=== PATIENT | male | born 1970 | race African-American/Black ===

== ENCOUNTER 2024-08-26 20:16 | Emergency (ER) | payer OTHER, SELFPAY ==
[2024-08-26 20:17] VITALS: BP 158/106; PULSE 108; RESP 24; TEMP 37.1; O2SAT 99
[2024-08-26 20:28] VITALS: BMI 45.1
--- NOTE | 2024-08-26 20:51 | CT_ITS ---
PROCEDURE: ABDOMEN/PELVIS W IV CONT ONLY 08/26/2024 REASON FOR EXAM: ABDOMINAL PAIN TECHNIQUE: Abdomen and pelvis CT with intravenous contrast. Coronal and Sagittal reconstruction series were provided. CONTRAST: ISOVUE-300 VOLUME: 100 mL. One or more dose reduction techniques were used (e.g., Automated exposure control, adjustment of the mA and/or kV according to patient size, use of iterative reconstruction technique. RADIATION DOSE SUMMARY: DLP: 1485 0.82 mGycm COMPARISON: NONE. FINDINGS: Lung bases: Clear. Liver: Normal size. No mass. Gallbladder: Surgically absent. Spleen: Normal size. Pancreas: Normal size without evidence of mass surrounding inflammation or ductal dilation. Adrenals: Normal Kidneys: Normal renal sizes. No hydronephrosis. Bladder: Normal Reproductive Organs: Bowel: Right hemiabdomen bowel suture. Normal caliber large and small bowel. Lymph nodes: Unremarkable. Vasculature: Mild diffuse atherosclerotic calcifications are noted. LYMPH NODES Peritoneum / Retroperitoneum: Bones: Degenerative changes of the spine. CT/Abdomen/Pelvis W IV Cont ONLY IMPRESSION: No acute abnormalities. OVERALL FINAL ASSESSMENT: . LI-RADS is not meant to be used in patients <18 years or patients with cirrhosi s due to congenital hepatic fibrosis or due to vascular disorders, because these patients have a lower chance of developing HC C. Reading Location: [place] [id number]
[2024-08-26 20:53] LABS: Bedside Glucose 332 mg/dL (74-106)
--- NOTE | 2024-08-26 20:53 | ED.VIS.GI ---
HPI <Dr. Adiel Shah DO - Last Filed: 08/27/24 00:53> HPI - GI History of Present Illness Chief Complaint: Abd Pain Informant: patient Abdominal Pain/Flank Pain Onset: Hours (2) Context: Sudden Onset Timing: Continuous Quality: Aching and Sharp Location: Epigastric, RUQ and LUQ Current Severity: Severe Maximum Severity: Severe Worsened by: Nothing Relieved by: Nothing Nausea/Vomiting/Emesis GI Symptom: Positive for Nausea and Vomiting Quality: Positive for Nonbilious; Negative for Blood streaks, Coffee ground or Hematemesis Diarrhea/Melena/Hematochezia GI Symptom: Negative for Diarrhea, Melena or Hematochezia Associated Symptoms Associated Symptoms: Positive for Frequency; Negative for Dysuria or Hematuria Narrative Narrative: Patient presents with abdominal pain that began approximately 2 hours prior to arrival. Patient states his pain is mainly over his upper abdomen. Patient noted his blood sugars were elevated today. Patient describes the pain as sharp, aching, and burning. Patient states nothing makes it worse and nothing makes it better. Patient admits to some subjective fevers and chills. Patient also admits to some diaphoresis. Patient states he had a recent upper respiratory congestion and rhinorrhea. Patient admits to a mild cough but denies any sputum production. Patient denies any hematemesis or coffee-ground emesis. Patient denies any diarrhea, melena, or hematochezia. Patient admits to some urinary frequency and polyuria but denies any dysuria or hematuria. [facility] <Dr. Adiel Shah DO - Last Filed: 08/27/24 00:53> [facility] Medical History (Updated 08/27/24 @ 00:[address] Adiel Shah DO) Hypertension Diabetes mellitus Home Medications ?Medication ?Instructions ?Recorded ?Last Taken ?Type glipizide 10 mg tablet 15 mg (1.5 x 10 mg) PO DAILY #30 08/27/24 Unknown Rx tabs hydrochlorothiazide 12.5 mg tablet 12.5 mg PO DAILY #30 tabs 08/27/24 Unknown Rx hydrocodone-acetaminophen 5-325mg 1 tab PO Q6H PRN PRN Pain 3 days 08/27/24 Unknown Rx 5mg-325mg #10 TABLETS lisinopril 40 mg tablet 40 mg PO DAILY #30 tabs 08/27/24 Unknown Rx metformin 1,000 mg 24 hr 1,000 mg PO BID #60 tabs 08/27/24 Unknown Rx tablet,extended release (gastric reten.) (Glumetza) ondansetron 4 mg disintegrating 4 mg PO Q8H PRN PRN Nausea #10 tabs 08/27/24 Unknown Rx tablet Allergy/AdvReac Type Severity Reaction Status Date / Time No Known Allergies Allergy Verified 08/26/24 20:19 Family History no significant family his Surgical History (Updated 08/26/24 @ 23:[address] Adiel Shah DO) Hx of cholecystectomy Hx of appendectomy Social History Smoking Status: Never smoker ROS <Dr. Adiel Shah DO - Last Filed: 08/27/24 00:53> ROS ED Constitutional Constitutional ED: Reports chills, fever(s) and sweats Eyes Eyes: Denies blurry vision or change in vision ENT ENT ED: Reports rhinorrhea; Denies sore throat Cardiovascular Cardiovascular: Denies chest pain or palpitations Respiratory/Chest Respiratory/Chest: Reports cough; Denies dyspnea Gastrointestinal Gastrointestinal: Reports abdominal pain, nausea and vomiting; Denies diarrhea or melena Genitourinary Genitourinary ED: Reports urinary frequency; Denies dysuria or hematuria Musculoskeletal Musculoskeletal: Denies back pain or neck pain Integumentary Denies abscess or rash Neurologic Neurologic: Reports headache(s) and weakness Endocrine Endocrinology: Reports polyuria Allergic/Immunologic Allergic/Immunologic ED: Denies mouth swelling or urticaria EXAM <Dr. Adiel Shah DO - Last Filed: 08/27/24 00:53> Physical Exam Const Vital Signs: 08/26/24 20:17 08/26/24 20:28 08/26/24 21:17 Temperature 98.8 F Temperature Source Oral Pulse Rate 108 H 89 Respiratory Rate 24 H 18 Respiratory Effort Normal Respiratory Pattern Tachypnea Blood Pressure 158/106 H 161/98 H Blood Pressure Mean 123 119 Pulse Ox 99 95 Oxygen Delivery Method Room Air Room Air 08/26/24 22:00 08/26/24 23:00 08/27/24 00:00 Temperature Temperature Source Pulse Rate 85 87 101 H Respiratory Rate 25 H 18 18 Respiratory Effort Respiratory Pattern Blood Pressure 187/117 H 198/106 H 175/108 H Blood Pressure Mean 140 136 130 Pulse Ox 97 95 97 Oxygen Delivery Method Room Air Room Air Room Air 08/27/24 01:00 08/27/24 01:09 Temperature 97.8 F Temperature Source Pulse Rate 96 99 Respiratory Rate 18 18 Respiratory Effort Respiratory Pattern Blood Pressure 184/107 H 184/107 H Blood Pressure Mean 132 132 Pulse Ox 97 97 Oxygen Delivery Method Room Air Positive well nourished and well developed Constitutional Narrative: BMI is 45.1 General Appearance ED: well developed and NAD HEENT Reports moist mucous membranes Neck supple and no JVD Resp normal respiratory effort and clear to auscultation bilaterally Cardio regular rhythm Rate: tachycardic GI non-distended Palpation: soft and tender epigastric, LLQ, RLQ, LUQ, RUQ, periumbilical and suprapubic; Negative for guarding or rebound tenderness present Neuro CN's II-XII intact bilaterally, moves all extremities and no sensory deficits noted Sensorium / Orientation: alert Motor Exam: strength 5/5 throughout Psych mental status grossly normal <Dr. Karel Navarrete MD - Last Filed: 08/27/24 01:57> Physical Exam Const Vital Signs: 08/26/24 20:17 08/26/24 20:28 08/26/24 21:17 Temperature 98.8 F Temperature Source Oral Pulse Rate 108 H 89 Respiratory Rate 24 H 18 Respiratory Effort Normal Respiratory Pattern Tachypnea Blood Pressure 158/106 H 161/98 H Blood Pressure Mean 123 119 Pulse Ox 99 95 Oxygen Delivery Method Room Air Room Air 08/26/24 22:00 08/26/24 23:00 08/27/24 00:00 Temperature Temperature Source Pulse Rate 85 87 101 H Respiratory Rate 25 H 18 18 Respiratory Effort Respiratory Pattern Blood Pressure 187/117 H 198/106 H 175/108 H Blood Pressure Mean 140 136 130 Pulse Ox 97 95 97 Oxygen Delivery Method Room Air Room Air Room Air 08/27/24 01:00 08/27/24 01:09 Temperature 97.8 F Temperature Source Pulse Rate 96 99 Respiratory Rate 18 18 Respiratory Effort Respiratory Pattern Blood Pressure 184/107 H 184/107 H Blood Pressure Mean 132 132 Pulse Ox 97 97 Oxygen Delivery Method Room Air MDM <Dr. Adiel Shah DO - Last Filed: 08/27/24 00:53> [facility] MDM Narrative Medical decision making narrative: Differential diagnosis includes diabetic ketoacidosis, hyperosmolar hyperglycemic nonketotic state, uncontrolled diabetes, dehydration, electrolyte abnormality, pancreatitis, viral illness, bowel obstruction, perforation, aortic aneurysm, and aortic dissection. CT scan of the abdomen and pelvis will be obtained to assess for bowel obstruction, perforation, pancreatitis, aortic aneurysm, and aortic dissection. CBC will be obtained to assess for leukocytosis and anemia. Comprehensive metabolic profile will be obtained to assess for hepatic function, renal function, and electrolyte abnormality. Lipase will be obtained to assess for pancreatitis. Beta hydroxybutyrate will be obtained to assess for diabetic ketoacidosis. Serum lactate will be obtained to assess for sepsis. Urinalysis will be obtained to assess for urinary tract infection and hematuria. COVID-19, influenza, and RSV PCR will be obtained to assess for viral illness. Venous blood gas will be obtained to assess for diabetic ketoacidosis. History & Record Review Additional record(s) reviewed:: No prior records Lab Data Attestation: I reviewed the patient's lab results. Lab results narrative: CBC was reviewed and was within normal limits. Comprehensive metabolic profile was reviewed. CO2 was slightly low at 17.1 and anion gap is slightly elevated at 18. Glucose was mildly elevated at 339. Serum lactate was reviewed and was elevated at 4.7. Lipase was reviewed and was normal at 37. Beta hydroxybutyrate was reviewed and was minimally elevated at 0.4. Urinalysis was reviewed. There is no evidence of urinary tract infection or hematuria. Urine ketones were 150. Urine glucose was 1000. COVID-19 PCR was reviewed and was negative. Influenza PCR was reviewed and was negative for influenza A and influenza B. RSV PCR was reviewed and was negative. Labs: Laboratory Results - last 24 hr 08/26/24 08/26/24 08/26/24 20:34 20:35 21:09 WBC 6.3 RBC 5.13 Hgb 14.9 Hct 40.4 MCV 78.8 L MCH 29.0 MCHC 36.9 H RDW Std Deviation 35.7 RDW Coeff of Michael 12.6 Plt Count 294 MPV 10.6 Immature Gran % (Auto) 0.200 Neut % (Auto) 54.5 Lymph % (Auto) 35.2 [place] % (Auto) 7.8 Eos % (Auto) 1.3 Baso % (Auto) 1.0 Absolute Neuts (auto) 3.4 Absolute Lymphs (auto) 2.21 Nucleated RBC % 0 Sodium 133 Potassium 3.4 Chloride 98 Carbon Dioxide 17.1 L Anion Gap 18 H BUN 13 Creatinine 0.98 Estim Creat Clear Calc 144.85 Est GFR (MDRD) Non-Af 93 BUN/Creatinine Ratio 13.5 Glucose 339 H Lactic Acid Calcium 9.5 Total Bilirubin 0.73 AST 20 ALT 19 Alkaline Phosphatase 98 Total Protein 8.0 Albumin 4.3 Globulin 3.7 Albumin/Globulin Ratio 1.1 Lipase 37 b-Hydroxybutyric mmol/L 0.4 Urine Color Yellow Urine Clarity Cloudy Urine pH 6.0 Ur Specific [place] 1.025 Urine Protein 100 H Urine Glucose (UA) 1000 H Urine Ketones 150 A* Urine Occult Blood 10 H Urine Nitrite Negative Urine Bilirubin 1 H Urine Urobilinogen Normal Ur Leukocyte Esterase Negative Urine RBC 0-5 SEEN Urine WBC 0-5 SEEN Ur Squamous Epith Cells 0 SEEN Amorphous Sediment 1+ Urine Bacteria 0 SEEN Urine Mucus 2+ POC Glucose 332 H 08/26/24 08/26/24 08/27/24 21:20 23:27 00:22 WBC RBC Hgb Hct MCV MCH MCHC RDW Std Deviation RDW Coeff of Michael Plt Count MPV Immature Gran % (Auto) Neut % (Auto) Lymph % (Auto) [place] % (Auto) Eos % (Auto) Baso % (Auto) Absolute Neuts (auto) Absolute Lymphs (auto) Nucleated RBC % Sodium Potassium Chloride Carbon Dioxide Anion Gap BUN Creatinine Estim Creat Clear Calc Est GFR (MDRD) Non-Af BUN/Creatinine Ratio Glucose Lactic Acid 4.7 H* Calcium Total Bilirubin AST ALT Alkaline Phosphatase Total Protein Albumin Globulin Albumin/Globulin Ratio Lipase b-Hydroxybutyric mmol/L Urine Color Urine Clarity Urine pH Ur Specific [place] Urine Protein Urine Glucose (UA) Urine Ketones Urine Occult Blood Urine Nitrite Urine Bilirubin Urine Urobilinogen Ur Leukocyte Esterase Urine RBC Urine WBC Ur Squamous Epith Cells Amorphous Sediment Urine Bacteria Urine Mucus POC Glucose 344 H 331 H 08/27/24 01:07 WBC RBC Hgb Hct MCV MCH MCHC RDW Std Deviation RDW Coeff of Michael Plt Count MPV Immature Gran % (Auto) Neut % (Auto) Lymph % (Auto) [place] % (Auto) Eos % (Auto) Baso % (Auto) Absolute Neuts (auto) Absolute Lymphs (auto) Nucleated RBC % Sodium Potassium Chloride Carbon Dioxide Anion Gap BUN Creatinine Estim Creat Clear Calc Est GFR (MDRD) Non-Af BUN/Creatinine Ratio Glucose Lactic Acid 2.7 H* Calcium Total Bilirubin AST ALT Alkaline Phosphatase Total Protein Albumin Globulin Albumin/Globulin Ratio Lipase b-Hydroxybutyric mmol/L Urine Color Urine Clarity Urine pH Ur Specific [place] Urine Protein Urine Glucose (UA) Urine Ketones Urine Occult Blood Urine Nitrite Urine Bilirubin Urine Urobilinogen Ur Leukocyte Esterase Urine RBC Urine WBC Ur Squamous Epith Cells Amorphous Sediment Urine Bacteria Urine Mucus POC Glucose ABG Data Interpretation: Venous blood gas was obtained. pH was normal at 7.498. pCO2 was 23.9. pO2 was 57.7. Bicarb was 18.5. Oxygen saturation was 92.6%. ABG results: ABG 08/26/24 21:32 Specimen Type JOSHUA Sample Site Not entered VBG pH 7.50 H VBG pO2 58 H VBG HCO3 19 L VBG Total CO2 19 L VBG O2 Sat (Calc) 93 H VBG Base Excess -5 L POC Mix VBG pCO2 Pt Tmp 23.9 L O2 Delivery Device Room Air Radiography Diagnostic Testing: Clinical Impression(s) from Imaging Studies Abdomen/Pelvis CT 08/26/24 20:51 IMPRESSION: No acute abnormalities. OVERALL FINAL ASSESSMENT: . LI-RADS is not meant to be used in patients <18 years or patients with cirrhosis due to congenital hepatic fibrosis or due to vascular disorders, because these patients have a lower chance of developing HCC. Reading Location: [place] [address] EKG Initial EKG: Attestation: I personally reviewed and interpreted this EKG as follows: Interpretation: Sinus Rhythm (89) and Non-Specific ST Changes Comments: EKG was obtained. On my independent interpretation, it showed a normal sinus rhythm with a rate of 89. [place] interval, QRS interval, and QTc intervals were all normal. [place] was normal. There are nonspecific ST-T wave changes. Prior EKG tracings: not available for review Prior: No Prior Treatment and Re-Evaluation :: Patient was given IV fluids. Patient was given morphine and Zofran initially. Patient became anxious on CT scan table. Patient was brought back to the emergency department. Patient was given a dose of Ativan. Patient was able to lay down for CT scan. Patient was given a repeat dose of morphine and a dose of Reglan. Patient was feeling somewhat better on reevaluation. Patient was advised of his findings. Patient states he needs refills of his lisinopril hydrochlorothiazide, metformin, and glipizide. Patient was given prescriptions for these. Patient was also given prescription for Zofran and a short course of [place]. Patient was instructed to start with a liquid diet and advance as tolerated. Patient was instructed to follow-up with his primary care physician in 5 to 7 days. Patient was instructed to return if worse in any way. Patient understood and was agreeable with the plan. All questions were answered. Prior to discharge, patient had episode of diaphoresis. Repeat BGT was obtained and was 331. Patient was given repeat bolus of normal saline. Patient was given a dose of labetalol for his elevated blood pressure of 198/106. Care of the patient will be turned over to the oncoming physician pending repeat lactate. If this is normal, I think the patient is safe to be discharged home. <Dr. Karel Navarrete MD - Last Filed: 08/27/24 01:57> [facility] MDM Narrative Medical decision making narrative: Differential diagnosis includes diabetic ketoacidosis, hyperosmolar hyperglycemic nonketotic state, uncontrolled diabetes, dehydration, electrolyte abnormality, pancreatitis, viral illness, bowel obstruction, perforation, aortic aneurysm, and aortic dissection. CT scan of the abdomen and pelvis will be obtained to assess for bowel obstruction, perforation, pancreatitis, aortic aneurysm, and aortic dissection. CBC will be obtained to assess for leukocytosis and anemia. Comprehensive metabolic profile will be obtained to assess for hepatic function, renal function, and electrolyte abnormality. Lipase will be obtained to assess for pancreatitis. Beta hydroxybutyrate will be obtained to assess for diabetic ketoacidosis. Serum lactate will be obtained to assess for sepsis. Urinalysis will be obtained to assess for urinary tract infection and hematuria. COVID-19, influenza, and RSV PCR will be obtained to assess for viral illness. Venous blood gas will be obtained to assess for diabetic ketoacidosis. Repeat exam patient is doing well at 1:50 AM. States has had this before. He does a known history of gastroparesis. He has had very similar events in the past. His labs are basically unremarkable. He was turned over to me from Dr. Adiel Shah around 1:30 in the morning. His CAT scan was unremarkable. And his second lactic acid has improved. Repeat abdominal exam is benign. He will be given IV Toradol. Patient is from out of town. He will be observed tonight allowed to sleep in the emergency department and discharge in the morning. Lab Data Labs: Laboratory Results - last 24 hr 08/26/24 08/26/24 08/26/24 20:34 20:35 21:09 WBC 6.3 RBC 5.13 Hgb 14.9 Hct 40.4 MCV 78.8 L MCH 29.0 MCHC 36.9 H RDW Std Deviation 35.7 RDW Coeff of Michael 12.6 Plt Count 294 MPV 10.6 Immature Gran % (Auto) 0.200 Neut % (Auto) 54.5 Lymph % (Auto) 35.2 [place] % (Auto) 7.8 Eos % (Auto) 1.3 Baso % (Auto) 1.0 Absolute Neuts (auto) 3.4 Absolute Lymphs (auto) 2.21 Nucleated RBC % 0 Sodium 133 Potassium 3.4 Chloride 98 Carbon Dioxide 17.1 L Anion Gap 18 H BUN 13 Creatinine 0.98 Estim Creat Clear Calc 144.85 Est GFR (MDRD) Non-Af 93 BUN/Creatinine Ratio 13.5 Glucose 339 H Lactic Acid Calcium 9.5 Total Bilirubin 0.73 AST 20 ALT 19 Alkaline Phosphatase 98 Total Protein 8.0 Albumin 4.3 Globulin 3.7 Albumin/Globulin Ratio 1.1 Lipase 37 b-Hydroxybutyric mmol/L 0.4 Urine Color Yellow Urine Clarity Cloudy Urine pH 6.0 Ur Specific [place] 1.025 Urine Protein 100 H Urine Glucose (UA) 1000 H Urine Ketones 150 A* Urine Occult Blood 10 H Urine Nitrite Negative Urine Bilirubin 1 H Urine Urobilinogen Normal Ur Leukocyte Esterase Negative Urine RBC 0-5 SEEN Urine WBC 0-5 SEEN Ur Squamous Epith Cells 0 SEEN Amorphous Sediment 1+ Urine Bacteria 0 SEEN Urine Mucus 2+ POC Glucose 332 H 08/26/24 08/26/24 08/27/24 21:20 23:27 00:22 WBC RBC Hgb Hct MCV MCH MCHC RDW Std Deviation RDW Coeff of Michael Plt Count MPV Immature Gran % (Auto) Neut % (Auto) Lymph % (Auto) [place] % (Auto) Eos % (Auto) Baso % (Auto) Absolute Neuts (auto) Absolute Lymphs (auto) Nucleated RBC % Sodium Potassium Chloride Carbon Dioxide Anion Gap BUN Creatinine Estim Creat Clear Calc Est GFR (MDRD) Non-Af BUN/Creatinine Ratio Glucose Lactic Acid 4.7 H* Calcium Total Bilirubin AST ALT Alkaline Phosphatase Total Protein Albumin Globulin Albumin/Globulin Ratio Lipase b-Hydroxybutyric mmol/L Urine Color Urine Clarity Urine pH Ur Specific [place] Urine Protein Urine Glucose (UA) Urine Ketones Urine Occult Blood Urine Nitrite Urine Bilirubin Urine Urobilinogen Ur Leukocyte Esterase Urine RBC Urine WBC Ur Squamous Epith Cells Amorphous Sediment Urine Bacteria Urine Mucus POC Glucose 344 H 331 H 08/27/24 01:07 WBC RBC Hgb Hct MCV MCH MCHC RDW Std Deviation RDW Coeff of Michael Plt Count MPV Immature Gran % (Auto) Neut % (Auto) Lymph % (Auto) [place] % (Auto) Eos % (Auto) Baso % (Auto) Absolute Neuts (auto) Absolute Lymphs (auto) Nucleated RBC % Sodium Potassium Chloride Carbon Dioxide Anion Gap BUN Creatinine Estim Creat Clear Calc Est GFR (MDRD) Non-Af BUN/Creatinine Ratio Glucose Lactic Acid 2.7 H* Calcium Total Bilirubin AST ALT Alkaline Phosphatase Total Protein Albumin Globulin Albumin/Globulin Ratio Lipase b-Hydroxybutyric mmol/L Urine Color Urine Clarity Urine pH Ur Specific [place] Urine Protein Urine Glucose (UA) Urine Ketones Urine Occult Blood Urine Nitrite Urine Bilirubin Urine Urobilinogen Ur Leukocyte Esterase Urine RBC Urine WBC Ur Squamous Epith Cells Amorphous Sediment Urine Bacteria Urine Mucus POC Glucose ABG Data ABG results: ABG 08/26/24 21:32 Specimen Type JOSHUA Sample Site Not entered VBG pH 7.50 H VBG pO2 58 H VBG HCO3 19 L VBG Total CO2 19 L VBG O2 Sat (Calc) 93 H VBG Base Excess -5 L POC Mix VBG pCO2 Pt Tmp 23.9 L O2 Delivery Device Room Air Radiography Diagnostic Testing: Clinical Impression(s) from Imaging Studies Abdomen/Pelvis CT 08/26/24 20:51 IMPRESSION: No acute abnormalities. OVERALL FINAL ASSESSMENT: . LI-RADS is not meant to be used in patients <18 years or patients with cirrhosis due to congenital hepatic fibrosis or due to vascular disorders, because these patients have a lower chance of developing HCC. Reading Location: [place] [address] Discharge Plan Triage Chief Complaint: Abd Pain Other Complaint: General Illness ED Provider: Adiel Shah Dx/Rx/DC Orders Clinical Impression: Hyperglycemia, Diabetes mellitus, Nausea and vomiting Instructions: ED Diabetic Hyperglycemia, ED Vomiting (Adult) Prescriptions: New hydrocodone-acetaminophen 5-325 mg tablet 1 tab PO Q6H PRN PRN (Reason: Pain) 3 Days Qty: 10 0RF ondansetron 4 mg tablet,disintegrating 4 mg PO Q8H PRN PRN (Reason: Nausea) Qty: 10 0RF lisinopril 40 mg tablet 40 mg PO DAILY Qty: 30 0RF hydrochlorothiazide 12.5 mg tablet 12.5 mg PO DAILY Qty: 30 0RF Continued glipizide 10 mg tablet 15 mg PO DAILY Qty: 30 0RF metformin [Glumetza] 1,000 mg tablet,ER derek.retention 24 hr 1,000 mg PO BID Qty: 60 0RF Discontinued lisinopril 30 mg tablet 30 mg PO DAILY Primary Care Provider: Care Physician,No Primary Referrals: [facility] Doctor,Out of [Non-Staff] - 5-7 Days Print Language: Setswana Disposition Disposition: Home, Self Care
--- NOTE | 2024-08-26 21:11 | EKG12_ITS ---
Test Reason : ABD PAIN Blood Pressure : */* mmHG Vent. Rate : 89 BPM Atrial Rate : 89 BPM P-R Int : 182 ms QRS Dur : 72 ms QT Int : 366 ms P-R-T Axes : 58 -5 21 degrees QTcB Int : 445 ms Normal sinus rhythm Minimal voltage criteria for LVH, may be normal variant ( R in aVL ) Inferior infarct , age undetermined Abnormal ECG Confirmed by PRIOM LOPEZ, MONE ([id number]), video effects editor RANDALL BOCANEGRA ([id number]) on 08/27/2024 10:38:02 AM Referred By: Confirmed By: MONE TILLMAN MD
[2024-08-26 21:13] LABS: Absolute Lymphocyte Count 2.21 X10^3/uL (0.83-4.51); Absolute Neutrophil Count 3.4 X10^3/uL (2.0-7.7); Basophil# 0.06 X10^3/uL; Eosinophil# 0.08 X10^3/uL; Eosinophils% 1.3 % (0-5); Hematocrit 40.4 % (40-54); Hemoglobin 14.9 g/dL (13.0-16.5); Lymphocyte # 2.21 X10^3/ul (0.83-4.51); Lymphocyte % 35.2 % (19-41); Mean Corp Hgb Conc 36.9 g/dL (32-36); Mean Corpuscular Volume 78.8 fL (80-94); Mean Platelet Vol. 10.6 fl (6.2-12.0); Monocyte# 0.49 X10^3/uL; Monocyte% 7.8 % (0-10); NRBC Flagged by Analyzer 0 % (0-5); Neutrophil # 3.43 X10^3/uL (2.7-7.7); Neutrophil % 54.5 % (47-70); Platelet Count 294 K/mm3 (150-450); RBC Distribution Width CV 12.6 % (11.6-14.6); RBC Distribution Width SD 35.7 fl (35.1-43.9); Red Blood Count 5.13 M/mm3 (4.6-6.2); White Blood Count 6.3 K/mm3 (4.4-11.0)
[2024-08-26] MEDS: Ondansetron 4 MG/2 ML Vial IV (21:15)
[2024-08-26] MEDS: 0.9% Normal Saline (1000mL) 1,000 ML 999 ML IV (21:15)
[2024-08-26] MEDS: Morphine 4 MG/ML Syringe IV ×2 (21:15→22:39)
[2024-08-26 21:17] VITALS: BP 161/98; PULSE 89; RESP 18; O2SAT 95
[2024-08-26 21:22] LABS: Bacteria 0 SEEN /hpf (None Seen); Squamous Epithelial Cells - UA 0 SEEN /hpf (0-5)
[2024-08-26 21:23] LABS: Glucose, Dipstick 1000 mg/dl (Normal); Leukocyte Esterase-Dipstick Negative /ul (Negative); Nitrite-Dipstick Negative (Negative); Occult Blood-Urine 10 /ul (Negative); Protein-Dipstick 100 mg/dl (Negative); Specific Gravity, Urine 1.025 (1.002-1.030); Urine Bilirubin Dipstick 1 mg/dL (Negative); Urine Urobilinogen Normal (Normal)
[2024-08-26 21:24] LABS: Color, Urine Yellow (Yellow); Urine Clarity Cloudy (Clear)
[2024-08-26 21:27] LABS: Ketone-Dipstick 150 mg/dl (Negative)
[2024-08-26 21:36] LABS: Blood Gas Specimen Type VEN; O2 Delivery Device Room Air; SITE Not entered; VBG BASE EXCESS -5 mmol/L (-1.0-3.5); VBG Bicarbonate 19 mmol/L (22-26); VBG PO2 58 mmHg (25-40); VBG SO2 93 % (50-70); VBG TCO2 19 mmol/L (23-33); VBG pCO2 23.9 mmHg (41-51)
[2024-08-26 21:38] LABS: Red Blood Cells-Urine 0-5 SEEN /hpf (0-5); White Blood Cells 0-5 SEEN /hpf (0-5)
[2024-08-26 21:39] LABS: Amorphous Sediment 1+; Mucous, Urine 2+ /hpf (<or=2+)
[2024-08-26 21:40] LABS: ALB/GLOB Ratio 1.1 RATIO (0.9-2.4); AST(SGOT) 20 U/L (<=37); Alanine Aminotransfer ALT/SGPT 19 U/L (<=46); Albumin, Serum 4.3 g/dL (3.5-5.0); Alkaline Phosphatase 98 U/L (40-129); Anion Gap 18 (5-15); BETA-HYDROXYBUTYRATE 0.4 mmol/L (0.0-0.3); BUN 13 mg/dL (4-19); BUN/Creat Ratio 13.5 RATIO (10-20); Calcium,Total 9.5 mg/dL (7.6-11.0); Carbon Dioxide 17.1 mmol/L (21.0-32.0); Chloride 98 mmol/L (98-108); Creatinine, Serum 0.98 mg/dL (0.70-1.20); EST Glomerular Filtration Rate 93 (>60); Estimated Creatinine Clearance 144.85 ml/min (50-250); Globulin 3.7 g/dL (2.2-4.2); Glucose 339 mg/dL (70-99); Lipase 37 U/L (13-75); Potassium 3.4 mmol/L (3.3-5.1); Sodium Level 133 mmol/L (133-145); Total Bilirubin 0.73 mg/dL (0.00-1.30)
[2024-08-26 21:59] LABS: Lactic Acid 4.7 mmol/L (0.0-2.0)
[2024-08-26 22:00] VITALS: BP 187/117; PULSE 85; RESP 25; O2SAT 97
--- NOTE | 2024-08-26 22:08 | ED.RN ---
Addendum entered by Marvin López 08/26/24 22:24: Pt now states to RN Abhishek that he is willing to take medication in order to help with the anxiety. Dr. Shah notified. Original Note: CT called and spoke with this RN. CT states that this pt would not allow them to obtain a CT on him and that they believe this patient is having an anxiety attack. When the pt comes back to room 1, this RN enters and pt states I need my side rail down, I feel claustrophobic. This RN puts the side-rail down and patient immediately starts pacing. This RN asks this pt if he would want any medication to help with the anxiety. This pt denies wanting any medication and asks the nurse to leave. Prior to this RN leaving, pt educated about importance of obtaining a CT d/t s/s of why pt is here. made aware, no new orders at this time. Charge nurse and security also made aware.
[2024-08-26] MEDS: Lorazepam 2 MG/ML WCH Syringe 1 MG IV (22:43)
[2024-08-26] MEDS: 0.9% Normal Saline (1000mL) 1,000 ML 1000 ML IV (22:52)
[2024-08-26 23:00] VITALS: BP 198/106; PULSE 87; RESP 18; O2SAT 95
[2024-08-26] MEDS: Metoclopramide 10 MG/2 ML Vial IV (23:22)
[2024-08-26 23:46] LABS: Bedside Glucose 344 mg/dL (74-106)
[2024-08-27] VITALS: BP 175/108; PULSE 101; RESP 18; O2SAT 97
[2024-08-27] MEDS: Insulin Lispro 100 UNIT/ML INSULN.PEN 10 UNIT SC (00:46)
[2024-08-27] MEDS: 0.9% Normal Saline (1000mL) 1,000 ML 999 ML IV (00:47)
[2024-08-27 01:00] VITALS: BP 184/107; PULSE 96; RESP 18; O2SAT 97
[2024-08-27] MEDS: Labetalol 20 MG/4 ML Vial IV (01:02)
[2024-08-27 01:09] VITALS: BP 184/107; PULSE 99; RESP 18; TEMP 36.6; O2SAT 97
[2024-08-27 01:26] LABS: Reflex Lactate? Y
[2024-08-27 01:47] LABS: Lactic Acid 2.7 mmol/L (0.0-2.0)
[2024-08-27 01:52] LABS: Bedside Glucose 331 mg/dL (74-106)
[2024-08-27 02:00] VITALS: BP 174/91; PULSE 88; RESP 18; TEMP 37.2; O2SAT 99
[2024-08-27] MEDS: Ketorolac 30 MG/ML Syringe IV (02:00)
[2024-08-27 02:04] LABS: Bedside Glucose 325 mg/dL (74-106)
[2024-08-27 06:38] VITALS: BP 198/103; PULSE 66; RESP 16; O2SAT 98
== END 2024-08-27 06:49 | disposition home or self-care (01) ==
PROVIDERS: Emergency Provider Emergency Medicine; Visit Provider Emergency Medicine
DX: E11.65 Type 2 diabetes mellitus with hyperglycemia (principal); R11.2 Nausea with vomiting, unspecified; R10.9 Unspecified abdominal pain; Z11.52 Encounter for screening for COVID-19; R68.83 Chills (without fever); I10 Essential (primary) hypertension; R05.9 Cough, unspecified; Z79.84 Long term (current) use of oral hypoglycemic drugs; Z79.899 Other long term (current) drug therapy
CPT/HCPCS: 74177; 80053; 81001; 82010; 82803; 82962; 83605; 83690; 85025; 87631; 93005; 96361; 96374; 96375; 96376; 99284; Q9967; A4216; J2405